=== PATIENT | female | born 1965 | race American Indian/Alaskan Native ===

== ENCOUNTER 2019-11-01 16:19 | Emergency (ER) | payer OTHER, MEDICARE ==
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
--- NOTE | 2019-11-01 18:56 | XRay Report ---
CLINICAL DATA: pain TECHNICAL DATA: AP, lateral, and odontoid views of the cervical spine were obtained. FINDINGS: The vertebral body heights are within normal limits. Intervertebral disc space narrowing is present a t C C5-C6 with anterior and posterior osteophytes. There is no evidence of fracture. No prevertebral soft tissue swelling is evident. IMPRESSION: Normal alignment without evidence of fracture. Degenerative changes as noted. Please note poor visualization of the C1-2 junction, if clinical concern recommend repeat examination or CT Signer Name: Yoel Tong MD Signed: 11/01/2019 6:51 PM Workstation Name: [id number]
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
[2019-11-01] MEDS ORDERED: KETOROLAC 60 MG/2 ML INJ IM ONE (19:26)
[2019-11-01 21:09] VITALS: BP 163/82
== END 2019-11-01 20:40 | disposition home or self-care (01) ==
LOC: ED 16:19
DX: S16.1XXA Strain of muscle, fascia and tendon at neck level, initial encounter (principal); S39.012A Strain of muscle, fascia and tendon of lower back, initial encounter; I10 Essential (primary) hypertension; M19.91 Primary osteoarthritis, unspecified site; Z98.890 Other specified postprocedural states; Z79.899 Other long term (current) drug therapy; Z88.8 Allergy status to other drugs, medicaments and biological substances; V49.59XA Passenger injured in collision with other motor vehicles in traffic accident, initial encounter; Y93.89 Activity, other specified; Y92.410 Unspecified street and highway as the place of occurrence of the external cause; Y99.8 Other external cause status
CPT/HCPCS: 72040; 72100; 96372; 99283; J1885

== ENCOUNTER 2020-01-06 12:37 | Emergency (ER) | payer MEDICARE, OTHER ==
[2020-01-06 12:41] VITALS: BP 117/82
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
== END 2020-01-06 18:35 | disposition home or self-care (01) ==
LOC: ED 12:37
DX: S39.012A Strain of muscle, fascia and tendon of lower back, initial encounter (principal); S16.1XXA Strain of muscle, fascia and tendon at neck level, initial encounter; I10 Essential (primary) hypertension; M19.90 Unspecified osteoarthritis, unspecified site; Z79.899 Other long term (current) drug therapy; Z88.6 Allergy status to analgesic agent; V49.49XA Driver injured in collision with other motor vehicles in traffic accident, initial encounter; Y93.89 Activity, other specified; Y92.488 Other paved roadways as the place of occurrence of the external cause; Y99.8 Other external cause status
CPT/HCPCS: 99282